=== PATIENT | female | born 1970 | race Caucasian/White ===

== ENCOUNTER 2016-08-19 12:52 | Outpatient (CLI) ==
[2016-08-19 13:02] LABS: BASOPHILS # (AUTO) 0.1 K/uL (0-0.2); EOSINOPHILS # (AUTO) 0.2 K/ul (0.0-0.7); EOSINOPHILS % (AUTO) 2.8 % (0.0-7.0); HEMATOCRIT 40.2 % (37.0-47.0); HEMOGLOBIN 13.9 g/dl (12.0-16.0); IMMATURE GRANULOCYTE % (AUTO) 0.3 % (0.0-5.0); MEAN CORPUSCULAR HGB CONC 34.6 (31.8-35.4); MEAN CORPUSCULAR VOLUME 89.7 fl (81.0-99.0); MONOCYTES # (AUTO) 0.4 K/uL (0.4-2.0); NEUTROPHILS # (AUTO) 3.2 K/ul (2.0-6.9); NEUTROPHILS % (AUTO) 45.9; PLATELET COUNT 301 10^3/uL (140-440); RED BLOOD COUNT 4.48 10^6/ul (4.20-5.40); WHITE BLOOD COUNT 6.87 K/ul (4.6-10.2)
[2016-08-19 13:56] LABS: ALBUMIN 3.7 g/dL (3.4-5.0); ALBUMIN/GLOBULIN RATIO 1.16; ANION GAP 12.7; BILIRUBIN,TOTAL 0.61 mg/dL (0.00-1.20); BUN/CREATININE RATIO 11.68; CALCIUM 8.9 mg/dL (8.2-10.2); CHOL/HDL RATIO 4.5 (4.5-5.5); CREATININE 0.77 mg/dL (0.60-1.30); POTASSIUM 3.7 mmol/L (3.5-5.10); TOTAL PROTEIN 6.9 g/dL (6.4-8.2)
== END 2016-08-19 12:53 | disposition home or self-care (01) ==
LOC: LAB 12:52
PROVIDERS: ATTEND Nurse Practitioner Family
DX: Z00.00 Encounter for general adult medical examination without abnormal findings (principal)
CPT/HCPCS: 36415; 80053; 80061; 84439; 84443; 85025

== ENCOUNTER 2016-08-25 07:58 | Outpatient (CLI) ==
--- NOTE | 2016-08-25 08:45 | MAMMO ---
EXAM: Digital screening mammogram HISTORY: Screening COMPARISON: None FINDINGS: Digital MLO and CC views of the right and left breast were performed. There are scatter ed fibroglandular densities. There is a mass or asymmetry in the right lateral breast approximately 5 cm from the nipple and measuring 1.5 cm. There is a mass or asymmetry in the left lateral superi or breast and measuring 4 cm. IMPRESSION: Bilateral breast masses or asymmetries. Recommend bilateral diagnostic mammogram and ul trasound. BIRADS category 0, incomplete
== END 2016-08-25 07:59 | disposition home or self-care (01) ==
LOC: RAD 07:58
PROVIDERS: ATTEND Nurse Practitioner Family
DX: Z12.31 Encounter for screening mammogram for malignant neoplasm of breast (principal)

== ENCOUNTER 2016-08-27 07:37 | Outpatient (CLI) ==
--- NOTE | 2016-08-27 09:14 | MAMMO ---
EXAM: Diagnostic bilateral mammogram and ultrasound HISTORY: Other abnormal and inconclusive findings on diagnostic imaging of breast COMPARISON: Mammogram 08/27/2016 FINDINGS: Diagnostic mammogram was performed with spot compression CC and MLO views right and left breast. A rounded asymmetry or mass in the right lateral breast approximately 4 cm from the nipple persists on spot compression imaging CC view. A rounded mass left superior breast approximate 4 cm from the ni pple persists on spot compression imaging. Ultrasound right breast at the 9 o'clock position and 4 cm from the nipple demonstrates a mildly com plex cyst measuring 1.3 x 1.0 x 1.0 cm with internal echoes and no internal vascularity or nodularit y. This corresponds to the finding on mammogram. Ultrasound left breast at the 12 o'clock position and 4 cm of the nipple demonstrates a mildly compl ex cyst measuring 4.0 x 2.0 x 4.2 cm with internal echoes and no internal vascularity or nodularity. This corresponds to the finding on mammogram. IMPRESSION: Mildly complex bilateral breast cysts that are probably benign. Follow-up ultrasound of the right a nd left breast is recommended in 6 months for reevaluation. BIRADS category 3, probably benign
== END 2016-08-27 07:38 | disposition home or self-care (01) ==
LOC: RAD 07:37
PROVIDERS: ATTEND Nurse Practitioner Family
DX: R92.8 Other abnormal and inconclusive findings on diagnostic imaging of breast (principal)